=== PATIENT | female | born 1990 | race Caucasian/White ===

== ENCOUNTER 2024-12-23 14:00 | Emergency (ER) | payer OTHER ==
[~2024-12-23] VITALS: Ht 165.1 cm; Wt 47.3 kg
[~2024-12-23 14:00] MED LIST: IBUP-1022 PO; IBUP80TA PO; MAPA500T2 PO; OXYC1TAB23 PO; VITAPRTA PO
[2024-12-23 14:52] LABS: BASO % 0.3 % (0.0-1.0); EOS # 0.1 10^3/uL (0.0-0.5); EOS % 0.4 % (0.0-3.0); HEMOGLOBIN 14.3 g/dl (12.0-15.5); LYMPH # 2.3 10^3/uL (1.5-5.0); LYMPH % 16.1 % (24.0-44.0); MEAN CORPUSCULAR HEMOGLOBIN 29.9 pg (27.0-33.0); MEAN CORPUSCULAR HGB CONC 33.3 g/dl (32.0-36.5); MONO # 0.5 10^3/uL (0.0-0.8); MONO % 3.9 % (2.0-8.0); NEUTROPHILS # 11.1 10^3/uL (1.5-8.5); PLATELET COUNT, AUTOMATED 332 10^3/uL (150-450); RED BLOOD COUNT 4.78 10^6/uL (4.00-5.40)
[2024-12-23 15:06] LABS: ERYTHROCYTE SEDIMENTATION RATE 35 mm/hr (0-20)
[2024-12-23] MEDS ORDERED: ISOVUE-370 76% 100ML VIAL As Ordered ONE (16:09)
[2024-12-23] MEDS: KETOROLAC 30 MG/ML 1ML VIAL IV ONE (16:39)
[2024-12-23] MEDS: AMPICILLIN SOD/SULBACTAM SOD 3 GM in DEXTROSE 5% (D5W) MINI-BAG PLU 100 ML IV ONE ×2 (17:05→22:13)
[2024-12-23] MEDS: dexAMETHasone 20MG/5ML VIAL IV ONE (17:05)
[2024-12-23] MEDS ORDERED: HOME MED LIST COMPLETE! XX SCH (18:35)
[2024-12-23 21:32] VITALS: BP 118/76; TEMP 98.2; O2SAT 99
== END 2024-12-23 22:47 | disposition home or self-care (01) ==
LOC: M ED 14:00
DX: K04.7 Periapical abscess without sinus (principal); F17.200 Nicotine dependence, unspecified, uncomplicated; Z88.2 Allergy status to sulfonamides; Z88.8 Allergy status to other drugs, medicaments and biological substances
CPT/HCPCS: 70491; 80047; 83605; 84702; 85025; 85652; 86140; 87040; 96365; 96366; 96375; 99284; J0295; J1100; J1885; Q9967